=== PATIENT | female | born 1970 | race Caucasian/White ===

== ENCOUNTER 2023-11-19 08:02 | Emergency (ER) | payer BC, SELFPAY ==
--- NOTE | 2023-11-19 08:17 | ED.GENADUL_ITS ---
Discharge Plan Disposition Patient Disposition: Home Condition: Stable Discharge Details Clinical Impression: Right ureteral calculus Primary Care Provider: Christa,Local ED Provider: Lisa Pemberton Home Meds and New Rx's Prescriptions: New oxycodone-acetaminophen [Endocet] 5-325 mg tablet 1 tab PO Q8H PRN (Reason: pain) Qty: 7 0RF Rx Instructions: Take one tablet by mouth as needed every 8 hours for severe pain ondansetron 4 mg tablet,disintegrating 4 mg PO Q8H PRN (Reason: nausea and vomiting) 4 Days Qty: 9 0RF Rx Instructions: Take 1 tablet up to 3 times daily as needed for nausea and vomiting 20 minutes prior to meals. oxycodone-acetaminophen [Endocet] 5-325 mg tablet 1 tab PO Q8H PRN (Reason: pain) Qty: 7 0RF Rx Instructions: Take 1 tablet by mouth every 8 hours as needed for moderate to severe pain ondansetron 4 mg tablet,disintegrating 4 mg PO Q8H PRN (Reason: nausea and vomiting) 5 Days Qty: 15 0RF Rx Instructions: Take 1 tablet every 8 hours as needed for the next 5 days for nausea vomiting Discharge Instructions Instructions: Kidney Stones (ED), How to Strain Your Urine (ED) Additional Instructions: You have a kidney stone in your right ureter, This should pass on its own, however if you continue to have vomiting, fever, or problems urinating please be seen again. Follow-up with urology. Take the medications as directed. Follow up with primary care provider in 3-5 days. Return to ED sooner if any worsening or concerns. Please take Tylenol or Ibuprofen with food every 4-6 hours as needed for pain and swelling. Referrals: Jonathan Weaver MD [ [facility] STAFF PHYSICIAN] - 5 days (Right ureteral stone) HPI General Mode of arrival: ambulatory . Date/Time Provider Initiated Documentation: 11/19/23 08:10 . Limitations to Documentation: no limitations . Information obtained by: patient, RN notes reviewed and old records reviewed . HPI Narrative: 53-year-old female presents to the ER with a chief complaint of right flank pain which began last night. Worsened this morning. She reports that as moving. Associated with nausea vomiting. She does have a history of kidney stones. Did not take anything prior to arrival. Was given Zofran ODT by medical staff physician upon arrival. She is writhing in pain in the bed. Is actively vomiting upon arrival. Related Data Home Medications Medication Instructions Recorded Confirmed ondansetron 4 mg disintegrating 4 mg PO Q8H PRN nausea and 11/19/23 tablet vomiting 4 days #9 tabs ondansetron 4 mg disintegrating 4 mg PO Q8H PRN nausea and 24 tablet vomiting 5 days #15 tabs oxycodone-acetaminophen 5 mg-325 1 tab PO Q8H PRN pain #7 tabs 0424 mg tablet (Endocet) oxycodone-acetaminophen 5 mg-325 1 tab PO Q8H PRN pain #7 tabs 24 mg tablet (Endocet) Previous Rx's Medication Instructions Recorded ondansetron 4 mg disintegrating 4 mg PO Q8H PRN nausea and 11/19/23 tablet vomiting 4 days #9 tabs ondansetron 4 mg disintegrating 4 mg PO Q8H PRN nausea and 11/19/23 tablet vomiting 5 days #15 tabs oxycodone-acetaminophen 5 mg-325 1 tab PO Q8H PRN pain #7 tabs 0424 mg tablet (Endocet) oxycodone-acetaminophen 5 mg-325 1 tab PO Q8H PRN pain #7 tabs 24 mg tablet (Endocet) General Stated Complaint: FlankPain KONRAD: 3 Review of Systems All systems reviewed & are unremarkable except as noted in HPI and below Gastrointestinal Gastrointestinal: Reports nausea and Reports vomiting Genitourinary Genitourinary: Reports flank pain Exam Narrative Exam Narrative: Constitutional: Alert and oriented x3. Appears stated age. Normal body habitus. Writhing in bed, tearful actively vomiting. Head: Normocephalic, no trauma. Eyes: Pupils PERRL, Red reflex noted, EOM's intact. Eyelids symmetrical without lesions, discharge, or swelling. Resp: Lungs clear to auscultation bilaterally, no wheezes, rales, or rhonchi. Abdomen: Soft, non-distended, Normoactive bowel sounds all 4 quads. Right flank pain. Musculoskeletal: Normal gait, Skin: No suspicious rashes or lesions. Capillary refill less than 2 sec. Neurologic: Cranial nerves II-XII intact. Alert and oriented x 3. Motor: No deficits noted. Sensory: Intact bilaterally all 4 extremities. Hematologic/Lymphatic: No ecchymosis, no lymphadenopathy. Course Vital Signs Vital signs: Pain Level 10 11/18/ 08:05 Medical Decision Making 53-year-old female presents to the ER with a chief complaint of right flank pain which began last night. Worsened this morning. She reports that as moving. Associated with nausea vomiting. She does have a history of kidney stones. Did not take anything prior to arrival. Was given Zofran ODT by medical staff physician upon arrival. She is writhing in pain in the bed. Is actively vomiting upon arrival. Workup ordered including CBC CMP, urinalysis CT renal colic without contrast. Toradol and liter of fluid. Zofran. 09 52: On patient reevaluation she reports that she still has some pain. She reports Toradol helped somewhat. Discussed CT results with her including 5-6 millimeter stone in the ureter she verbalized understanding. Will give some morphine and follow-up with urology as needed with a urine strainer. This text was generated using [employer] dictation system, please disregard any oddities of phrase or misspellings. Imaging Data Radiologic Study: Imaging: CT Scan Radiologist's impression: COMPARISON: No exams were available for comparison FINDINGS: VISUALIZED LUNG BASES: Some ground-glass infiltrate noted in the lateral basal segment of the left lower lobe. There are no pleural effusions.. ABDOMEN: There is no ascites. LIVER: There are no obvious focal hepatic lesions evident of this noninfused study. GALLBLADDER/BILIARY: No obvious gallbladder pathology. CBD is not dilated. PANCREAS: No evidence of pancreatic mass nor dilatation of the pancreatic duct. SPLEEN: Spleen is not enlarged. No obvious intrasplenic lesions. ADRENALS: There are no significant adrenal masses. KIDNEYS:Left kidney unremarkable. Hydronephrosis and hydroureter noted on the right side which is due to a calculus in the mid right ureter which measures 5-6 there are no additional calculi seen in the lower right ureter nor within the urinary bladder. No calculi on the left side. No solid renal masses.. ABDOMINAL AORTA: Abdominal aorta is not enlarged. LYMPH NODES: There is no retroperitoneal nor paraaortic adenopathy. ABDOMINAL WALL: No evidence of significant anterior abdominal wall nor inguinal hernia. GI: There is no evidence of bowel obstruction, free air, nor abscess. PELVIS: LYMPH NODES: There is no intrapelvic nor inguinal adenopathy. GI: No evidence of appendicitis.Sigmoid diverticulosis noted but no obvious acute diverticulitis. URINARY BLADDER: No calculi nor obvious masses evident REPRODUCTIVE: Uterus and adnexal regions unremarkable. OSSEOUS: No fractures. Benign intraosseous hemangioma is noted in the L4 vertebral body. IMPRESSION: 1. There is an obstructing 5-6 millimeter calculus in the mid right ureter. Mild-moderate hydronephrosis above this level. No other renal calculi identified and no calculi in the urinary bladder. 2. Sigmoid diverticulosis. No evidence of diverticulitis. 3. No evidence of appendicitis. Lab Data Lab results reviewed: Yes I reviewed the patient's lab results. Labs: 11/19/23 09:15 Urine - Reflex from Ua Urine Culture - Pending Laboratory Tests Range/Units 11/19/23 11/19/23 08:40 09:15 WBC (4.4-10.8) 10^3/uL 8.13 RBC (3.93-5.22) 10^6/uL 4.41 Hgb (11.2-15.7) g/dL 13.0 Hct (36.0-46.0) % 38.6 MCV (80-95) fL 88 MCH (27.0-33.0) pg 29.5 MCHC (32.0-36.0) % 33.7 RDW (11.7-14.6) % 12.9 Plt Count (130-400) 10^3/uL 230 MPV (8.0-11.0) fL 9.3 Immature Gran % 0.4 Neutrophils % 78.1 Lymphocytes % 17.1 Monocytes % 3.1 Eosinophils % 0.9 Basophils % 0.4 Nucleated RBC % (0.0-0.3) % 0.0 Absolute Neutrophils (1.2-6.7) 10^3/uL 6.36 Absolute Lymphocytes (1.2-3.4) 10^3/uL 1.39 Absolute Monocytes (0.1-0.8) 10^3/uL 0.25 Absolute Eosinophils (0.0-0.7) 10^3/uL 0.07 Absolute Basophils (0.0-0.2) 10^3/uL 0.03 Sodium (136-145) mmol/L 140 Potassium (3.5-5.1) mmol/L 3.6 Chloride (98-107) mmol/L 103 Carbon Dioxide (21.0-32.0) mmol/L 23.6 Anion Gap (3-11) mmol/L 13.4 H BUN (7-18) mg/dL 17 Creatinine (0.55-1.02) mg/dL 0.8 Est GFR (CKD-EPI 2020) (mL/min/1.73m2) 87.50 Glucose (74-106) mg/dL 142 H Calcium (8.5-10.1) mg/dL 9.1 Total Bilirubin (0.2-1.0) mg/dL 0.5 AST (15-37) U/L 16 ALT (14-59) U/L 22 Alkaline Phosphatase (46-116) U/L 53 Total Protein (6.4-8.2) g/dL 7.9 Albumin (3.4-5.0) g/dL 4.0 Urine Color (Yellow) Yellow Urine Clarity (Clear) Sl Cloudy Urine pH (5-8) 7.0 Ur Specific [place] (1.005-1.025) 1.020 Urine Protein (Neg-Trace) mg/dL Negative Urine Ketones (Negative) mg/dL >=160 H Urine Blood (Negative) Moderate H Urine Nitrite (Negative) Positive H Urine Bilirubin (Negative) Negative Urine Urobilinogen (Up to 0.2) mg/dL 0.2 Ur Leukocyte Esterase (Negative) Negative Urine RBC (0-2) HPF 5-10 H Urine WBC (0-5) HPF 3-5 Ur Epithelial Cells (Negative) HPF Few Urine Crystals (Negative) HPF Negative Urine Bacteria (Negative) HPF Many Urine Casts (Negative) LPF Negative Urine Mucus (Negative) Moderate Ur Culture Indicated? Yes Urine Glucose (Negative) mg/dL Negative Quality:SDOH Health Related Social Needs: No Data to Display PFSH All Active Problems (Updated 11/19/23 @ 09:54 by Lisa Pemberton NP) Right ureteral calculus (Acute) Social History Smoking/Tobacco Use Status: Unknown Smoking risk assessment performed?: Yes Housing: house Do you feel safe at home: Yes Do you feel safe in your relationship?: Yes
[2023-11-19 08:18] VITALS: BP 127/103; PULSE 66; RESP 16; TEMP 36.2; O2SAT 100
[2023-11-19] MEDS: Ondansetron O.D.T. 4 MG TABEF PO (08:27)
[2023-11-19] MEDS: Normal Saline 1,000 ML 1000 ML IV (08:44)
[2023-11-19] MEDS: Ketorolac 30 MG/ML VIAL IVP (08:44)
[2023-11-19] MEDS: Ondansetron 4 MG/2 ML VIAL IVP (08:45)
[2023-11-19 08:46] LABS: Abs Immature Grans 0.03 10^3/uL (0.0-0.06); Absolute Basophil Count 0.03 10^3/uL (0.0-0.2); Absolute Eosinophil Count 0.07 10^3/uL (0.0-0.7); Absolute Lymphocyte Count 1.39 10^3/uL (1.2-3.4); Absolute Monocyte Count 0.25 10^3/uL (0.1-0.8); Absolute Neutrophil Count 6.36 10^3/uL (1.2-6.7); Basophils % 0.4; Eosinophils % 0.9; HCT 38.6 % (36.0-46.0); Immature Grans % 0.4; Lymphocytes % 17.1; MCH 29.5 pg (27.0-33.0); MCHC 33.7 % (32.0-36.0); MCV 88 fL (80-95); MPV 9.3 fL (8.0-11.0); Monocytes % 3.1; Neutrophils % 78.1; Platelet Count 230 10^3/uL (130-400); RBC 4.41 10^6/uL (3.93-5.22); RDW 12.9 % (11.7-14.6); RDW-SD 41.1 fL; WBC 8.13 10^3/uL (4.4-10.8)
[2023-11-19 09:01] LABS: ALT 22 U/L (14-59); AST 16 U/L (15-37); Alkaline Phosphatase 53 U/L (46-116); Anion Gap 13.4 mmol/L (3-11); BUN 17 mg/dL (7-18); Bilirubin, Total 0.5 mg/dL (0.2-1.0); CO2 23.6 mmol/L (21.0-32.0); CREATININE 0.8 mg/dL (0.55-1.02); Calcium 9.1 mg/dL (8.5-10.1); Chloride 103 mmol/L (98-107); Glucose 142 mg/dL (74-106); Potassium 3.6 mmol/L (3.5-5.1); Sodium 140 mmol/L (136-145); Total Protein 7.9 g/dL (6.4-8.2)
--- NOTE | 2023-11-19 09:20 | DI.CT_ITS ---
Exam(s) CT RENAL COLIC WO EXAM: CT RENAL COLIC WO CLINICAL HISTORY: Right Flank Pain, Vomiting. TECHNIQUE: Imaging Protocol: Axial computed tomography images with coronal and sagittal reformatted images were created and reviewed CONTRAST MATERIAL: Intravenous: none Oral: None COMPARISON: No exams were available for comparison FINDINGS: VISUALIZED LUNG BASES: Some ground-glass infiltrate noted in the lateral basal segment of the left lo wer lobe. There are no pleural effusions.. ABDOMEN: There is no ascites. LIVER: There are no obvious focal hepatic lesions evident of this noninfused study. GALLBLADDER/BILIARY: No obvious gallbladder pathology. CBD is not dilated. PANCREAS: No evidence of pancreatic mass nor dilatation of the pancreatic duct. SPLEEN: Spleen is not enlarged. No obvious intrasplenic lesions. ADRENALS: There are no significant adrenal masses. KIDNEYS:Left kidney unremarkable. Hydronephrosis and hydroureter noted on the right side which is du e to a calculus in the mid right ureter which measures 5-6 there are no additional calculi seen in th e lower right ureter nor within the urinary bladder. No calculi on the left side. No solid renal ma sses.. ABDOMINAL AORTA: Abdominal aorta is not enlarged. LYMPH NODES: There is no retroperitoneal nor paraaortic adenopathy. ABDOMINAL WALL: No evidence of significant anterior abdominal wall nor inguinal hernia. GI: There is no evidence of bowel obstruction, free air, nor abscess. PELVIS: LYMPH NODES: There is no intrapelvic nor inguinal adenopathy. GI: No evidence of appendicitis.Sigmoid diverticulosis noted but no obvious acute diverticulitis. URINARY BLADDER: No calculi nor obvious masses evident REPRODUCTIVE: Uterus and adnexal regions unremarkable. OSSEOUS: No fractures. Benign intraosseous hemangioma is noted in the L4 vertebral body. IMPRESSION: 1. There is an obstructing 5-6 millimeter calculus in the mid right ureter. Mild-moderate hydronephr osis above this level. No other renal calculi identified and no calculi in the urinary bladder. 2. Sigmoid diverticulosis. No evidence of diverticulitis. 3. No evidence of appendicitis. Called by myself to ER provider. RADIATION DOSE DELIVERED: Total DLP DATA REPOSITORY: All CT scans at this facility are submitted to the National Radiology Data Registry (NRDR) Dose Index Registry (DIR) with the [employer] ([employer]). RADIATION OPTIMIZATION: All CT scans at this facility use at least one of these dose optimization te chniques: automated exposure control; mA and/or kV adjustment per patient size (includes targeted exa ms where dose is matched to clinical indication); or iterative reconstruction.
[2023-11-19 09:24] LABS: Bilirubin Negative (Negative); Blood Moderate (Negative); Clarity Sl Cloudy (Clear); Glucose Negative (Negative); Ketones >=160 mg/dL (Negative); Leukocyte Esterase Negative (Negative); Nitrite Positive (Negative); Urobilinogen 0.2 mg/dL (Up to 0.2)
[2023-11-19 09:30] LABS: Bacteria Many HPF (Negative); C & S Indicated? Yes; Casts Negative LPF (Negative); Crystals Negative HPF (Negative); Epithelial Cells Few HPF (Negative); Mucus Moderate (Negative)
[2023-11-19] MEDS: MORPHine 4 MG/ML SYR IVP (10:11)
[2023-11-19] MEDS: Ondansetron O.D.T. 4 MG TABEF, 3 TABS/BTL PO (10:12)
== END 2023-11-19 10:13 | disposition home or self-care (01) ==
PROVIDERS: Emergency Provider Registered Nurse Emergency
DX: N13.2 Hydronephrosis with renal and ureteral calculous obstruction (principal); R11.2 Nausea with vomiting, unspecified
CPT/HCPCS: 80053; 87077; 96361; 96374; 96375; 99284; 74176; 81003; 81015; 85025; 87086; 87186; J1885; J2270; J2405